=== PATIENT | male | born 1980 | race Caucasian/White ===

== ENCOUNTER 2017-08-01 00:36 | Emergency (ER) | payer OTHER ==
[~2017-08-01] VITALS: Ht 180.3 cm; Wt 72.6 kg
== END 2017-08-01 11:40 | disposition home or self-care (01) ==
LOC: ED 00:36
DX: R45.851 Suicidal ideations (principal); F10.129 Alcohol abuse with intoxication, unspecified; Y90.5 Blood alcohol level of 100-119 mg/100 ml; F17.200 Nicotine dependence, unspecified, uncomplicated; Z88.6 Allergy status to analgesic agent
CPT/HCPCS: 36415; 80053; 80176; 81001; 84443; 85025; 99283; G0480